=== PATIENT | female | born 1950 | race Caucasian/White ===

== ENCOUNTER 2016-06-08 11:36 | Day surgery (SDC) | payer OTHER ==
--- NOTE | ~2016-06-08 | EGD ---
EGD REPORT [facility] [address] [place]. [address] NAME: UYEN GILLIAM : [birth year] STATUS : REG [facility]#: [id number] AGE: 65 ADM/REG DATE : 06/08/16 MR#: [id number] REPORT SERV DATE: 06/08/16 DICTATED BY: LIGIA LINO DATE: 06/08/16 REPORT STATUS : Draft TRANSCRIBED BY: [facility] DATE: 06/08/16 Endoscopy Center Patient Name: Uyen Gilliam Date of : 1950 Attending MD: LIGIA LINO MD Procedure Date No Time: 06/08/2016 Procedure: Upper GI endoscopy Indications: Epigastric abdominal pain, Abnormal CT of the GI tract stranding between head pancreas and duodenum; Pantoprazole 40mg daily. Patient Profile: Informed consent was obtained from the patient by me prior to the procedure. Risks, benefits, and alternatives were discussed including the risk of bleeding, perforation, infection, reaction to medicine, missed lesion, and cardiopulmonary complications. Referring MD: BECCA CHAKRABORTY Medicines: Monitored Anesthesia Care Complications: No immediate complications. Procedure: Pre-Anesthesia Assessment: - ASA Grade Assessment: III - A patient with severe systemic disease. After obtaining informed consent, the endoscope was passed under direct vision. Throughout the procedure, the patient's blood pressure, pulse, and oxygen saturations were monitored continuously. The GIF [id number] was introduced through the mouth, and advanced to the second part of duodenum. The endoscope was withdrawn with careful examination all mucosal surfaces including retroflexion stomach. The upper GI endoscopy was accomplished without difficulty. The patient tolerated the procedure well. Findings: The examined duodenum was normal. The entire examined stomach was normal. The examined esophagus was normal. The esophagus and gastroesophageal junction were examined with white light. There was no visual evidence of Cohen's esophagus. Impression: - Normal examined duodenum. - Normal stomach. - Normal esophagus. - There is no endoscopic evidence of Cohen's esophagus. Recommendation: - Patient has a contact number available for EGD REPORT [address] [address] NAME: UYEN GILLIAM : [birth year] STATUS : REG [facility]#: [id number] AGE: 65 ADM/REG DATE : 06/08/16 MR#: [id number] REPORT SERV DATE: 06/08/16 DICTATED BY: LIGIA LINO. DATE: 06/08/16 REPORT STATUS : Draft TRANSCRIBED BY: [employer] DATE: 06/08/16 emergencies. The signs and symptoms of potential delayed complications were discussed with the patient. Return to normal activities tomorrow. Written discharge instructions were provided to the patient. - Regular diet. - Continue present medications. - Advance diet as tolerated. Procedure Code(s): --- Professional --- 78177, Esophagogastroduodenoscopy, flexible, transoral; diagnostic, including collection of specimen(s) by brushing or washing, when performed (separate procedure) Diagnosis Code(s): --- Professional --- R10.13, Epigastric pain R93.3, Abnormal findings on diagnostic imaging of other parts of digestive tract CPT copyright 2013 [employer]. All rights reserved. The codes documented in this report are preliminary and upon compressor repairer review may be revised to meet current compliance requirements. LIGIA LINO MD 06/08/2016 1:59 PM This report has been signed electronically. Number of Addenda: 0 Note Initiated On: 06/08/2016 1:12 PM Scope Withdrawal Time 0 hours 0 minutes 0 seconds [id number] [place] [id number]
[~2016-06-08 11:36] MED LIST: ALLEGRA-D24 HOUR PO; ALLEGRA180 PO; ALLERGY INJ SC; ARMOUR THYRO30 MG PO; ASAB PO; BENTYL10 PO; C5 PO; CALTRA600D PO; CEFT5 PO; CLARIT10 PO; CRANBERRY1 TAB PO; FISH OIL1200 MG PO; FLONASE NAS; FLOVENT220 INH; HCTZ PO; KAPIDEX60 MG PO; L20 PO; LEVOTHYROXIN50 MCG PO; LEVOXYL50 MCG PO; LIPITOR40 PO; LORT7 PO; MAX25 PO; MELATONIN1 M1 PO; MOVE FREE; MULTIPLE VIT PO; MULTIVITAMI1 PO; NASACORTAQ NAS; OS500+D PO; P5 PO; PCET PO; PROAIR HFA INH; PROTONIX PO; RANITIDINE300 MG PO; TRIPLE FLEX PO; VOLT75 PO; VYTORIN 10/40 T1 TAB PO; [UNRECOGNIZED DRUG - OTHER] PO
== END 2016-06-08 23:59 | disposition home health service (06) ==
LOC: DMU 11:36
PROVIDERS: Internal Medicine Gastroenterology
PROC: 0DJ08ZZ Inspection of Upper Intestinal Tract, Via Natural or Artificial Opening Endoscopic (ICD-10-PCS; principal; 2016-06-08 13:00)
DX: R10.13 Epigastric pain (principal); E66.01 Morbid (severe) obesity due to excess calories; G47.33 Obstructive sleep apnea (adult) (pediatric); E03.9 Hypothyroidism, unspecified; E78.00 Pure hypercholesterolemia, unspecified; K21.9 Gastro-esophageal reflux disease without esophagitis; M19.90 Unspecified osteoarthritis, unspecified site; Z99.81 Dependence on supplemental oxygen; Z88.5 Allergy status to narcotic agent; Z88.8 Allergy status to other drugs, medicaments and biological substances; Z90.49 Acquired absence of other specified parts of digestive tract; Z90.710 Acquired absence of both cervix and uterus; Z98.890 Other specified postprocedural states; Z79.899 Other long term (current) drug therapy

== ENCOUNTER 2016-07-17 05:48 | Day surgery (SDC) | payer OTHER ==
--- NOTE | ~2016-07-17 | EGD ---
EGD REPORT [facility] [address] [place] [address] NAME: UYEN GILLIAM : [birth year] STATUS : REG [facility]#: [id number] AGE: 65 ADM/REG DATE : 07/17/16 MR#: [id number] REPORT SERV DATE: 07/17/16 DICTATED BY: LIGIA LINO DATE: 07/17/16 REPORT STATUS : Draft [facility]ANSCRIBED BY: [facility] DATE: 07/17/16 Endoscopy Center Patient Name: Uyen Gilliam Date of : 1950 Attending MD: LIGIA LINO MD Procedure Date No Time: 07/17/2016 Procedure: Colonoscopy Indications: High risk colon cancer surveillance: Personal history of sessile serrated colon polyp (less than 10 mm in size) with no dysplasia; last exam 2013; previous path one SSA proximal SC <10mm. Patient Profile: Informed consent was obtained from the patient by me prior to the procedure. Risks, benefits, and alternatives were discussed including the risk of bleeding, perforation, infection, reaction to medicine, missed lesion, and cardiopulmonary complications. Referring MD: BECCA CHAKRABORTY Medicines: Monitored Anesthesia Care Complications: No immediate complications. Procedure: Pre-Anesthesia Assessment: - ASA Grade Assessment: III - A patient with severe systemic disease. After I obtained informed consent, the scope was passed under direct vision. Throughout the procedure, the patient's blood pressure, pulse, and oxygen saturations were monitored continuously. The CF [id number] was introduced through the anus and advanced to the cecum, identified by appendiceal orifice and ileocecal valve. The colonoscope was slowly withdrawn with careful examination all mucosal surfaces including specific attention around flexures and tip deflection behind folds; retroflexion performed in rectum. The colonoscopy was performed without difficulty. The patient tolerated the procedure well. The quality of the bowel preparation was adequate. The ileocecal valve, appendiceal orifice and rectum were photographed. Findings: Two flat polyps were found in the sigmoid colon. The polyps were 3 to 5 mm in size. These polyps were removed with a cold biopsy forceps. Resection and retrieval were complete. Two flat polyps were found in the rectum. The polyps were 3 to 5 mm in size. These polyps were removed with a cold biopsy forceps. Resection and retrieval were complete. EGD REPORT [address] [address] NAME: UYEN GILLIAM : [birth year] STATUS : REG [facility]#: [id number] AGE: 65 ADM/REG DATE : 07/17/16 MR#: [id number] REPORT SERV DATE: 07/17/16 DICTATED BY: LIGIA LINO DATE: 07/17/16 REPORT STATUS : Draft TRANSCRIBED BY: [employer] DATE: 07/17/16 Impression: - Two 3 to 5 mm polyps in the sigmoid colon. Resected and retrieved. - Two 3 to 5 mm polyps in the rectum. Resected and retrieved. Recommendation: - Regular diet. - Patient has a contact number available for emergencies. The signs and symptoms of potential delayed complications were discussed with the patient. Return to normal activities tomorrow. Written discharge instructions were provided to the patient. - Continue present medications. - Await pathology results. - Repeat colonoscopy for surveillance based on pathology results. Procedure Code(s): --- Professional --- 60941, Colonoscopy, flexible, proximal to splenic flexure; with biopsy, single or multiple Diagnosis Code(s): --- Professional --- K62.1, Rectal polyp D12.5, Benign neoplasm of sigmoid colon Z86.010, Personal history of colonic polyps CPT copyright 2013 [employer]. All rights reserved. The codes documented in this report are preliminary and upon institutional research coordinator review may be revised to meet current compliance requirements. LIGIA LINO MD 07/17/2016 7:56 AM This report has been signed electronically. Number of Addenda: 0 Note Initiated On: 07/17/2016 7:11 AM Scope Withdrawal Time 0 hours 17 minutes 50 seconds [id number] [place] [id number]
== END 2016-07-17 23:59 | disposition home or self-care (01) ==
LOC: DMU 05:48
PROVIDERS: Internal Medicine Gastroenterology
PROC: 0DBP8ZZ Excision of Rectum, Via Natural or Artificial Opening Endoscopic (ICD-10-PCS; 2016-07-17)
PROC: 0DBN8ZZ Excision of Sigmoid Colon, Via Natural or Artificial Opening Endoscopic (ICD-10-PCS; principal; 2016-07-17 07:00)
DX: Z12.11 Encounter for screening for malignant neoplasm of colon (principal); K63.5 Polyp of colon; K62.1 Rectal polyp; G47.33 Obstructive sleep apnea (adult) (pediatric); E66.01 Morbid (severe) obesity due to excess calories; J45.909 Unspecified asthma, uncomplicated; E03.9 Hypothyroidism, unspecified; K85.90 Acute pancreatitis without necrosis or infection, unspecified; Z86.010 Personal history of colon polyps; M19.90 Unspecified osteoarthritis, unspecified site; K21.9 Gastro-esophageal reflux disease without esophagitis; E78.5 Hyperlipidemia, unspecified; Z90.49 Acquired absence of other specified parts of digestive tract; Z88.5 Allergy status to narcotic agent; Z88.1 Allergy status to other antibiotic agents; Z88.8 Allergy status to other drugs, medicaments and biological substances; Z90.721 Acquired absence of ovaries, unilateral; Z90.710 Acquired absence of both cervix and uterus; Z98.890 Other specified postprocedural states; Z79.899 Other long term (current) drug therapy
CPT/HCPCS: 88305